=== PATIENT | female | born 1955 | race Caucasian/White ===

== ENCOUNTER 2023-04-01 08:18 | Day surgery (SDC) | payer MEDICARE, OTHER ==
[~2023-04-01] VITALS: Ht 162.6 cm; Wt 63.1 kg
[~2023-04-01 08:18] MED LIST: CALCIUM 600600 MG PO; COMPLETE MULTI1 TAB PO
[2023-04-01 08:46] VITALS: BP 132/78; PULSE 60; TEMP 97.6
--- NOTE | 2023-04-01 09:43 | NUR ---
PATIENT AMBULATED TO BAY 4 WITH STEADY GAIT. ALERT AND ORIENTED X4. PATIENT STATED UNDERSTANDING OF PROCEDURE. CONSENTS SIGNED. ASSESSMENT COMPLETED. 20G IV STARTED IN LEFT HAND BY RUDOLPH SANCHES. LR INFUSING WITHOUT DIFFICULTIES. WARM BLANKET PROVIDED. NO FURHTER NEEDS NOTED. RESTING IN COT. CALL LIGHT IN REACH. AT BEDSIDE.
[2023-04-01] MEDS ORDERED: CEPHALEXIN500 M1 PO (10:49)
[2023-04-01] MEDS ORDERED: NORCO 325 MG-51 TAB PO (10:49)
[2023-04-01 11:20] VITALS: BP 113/75; PULSE 64; TEMP 97.8
--- NOTE | 2023-04-01 11:20 | NUR ---
1120 PATIENT RETURNS TO ROOM 4 VIA CART. PATIENT IS ALERT AND ORIENTED. RESPIRATIONS EVEN AND UNLABORED, ON ROOM AIR. VITAL SIGNS OBTAINED. NAY WRAP AND SURGICAL SHOE PRESENT TO RLE. PEDAL PULSES EQUAL AND STRONG BILATERALLY. PATIENT STATES THAT SHE DOES NOT HAVE ANY PAIN. PATIENT PRESENT IN ROOM. PATIENT REQUESTED A WATER. NO DIFFICULTIES SWALLOWING. 1150 THIS NURSE DISCONTINUED IV FROM LEFT HAND WITH NO DIFFICULTIES. IV CATHETER INTACT. 1200 THIS NURSE REVIEWED DISCHARGE INSTRUCTIONS WITH PATIENT AND PATIENT . BOTH VERBALIZED UNDERSTANDING. 1215 PATIENT DISCHARGED FROM UNIT VIA WHEELCHAIR IN STABLE CONDITION.
[2023-04-01 11:35] VITALS: BP 120/64; PULSE 60
[2023-04-01 11:50] VITALS: BP 113/65; PULSE 60
== END 2023-04-01 12:15 | disposition home or self-care (01) ==
LOC: SDCO 08:18
DX: M67.471 Ganglion, right ankle and foot (principal); Z95.0 Presence of cardiac pacemaker; Z95.818 Presence of other cardiac implants and grafts; G47.33 Obstructive sleep apnea (adult) (pediatric)
CPT/HCPCS: J0665; J0690; J1100; J2405; J2704; J3010; J7120